=== PATIENT | female | born 1970 | race African-American/Black ===

== ENCOUNTER 2017-11-17 14:25 | Emergency (ER) | payer SELFPAY ==
[~2017-11-17] VITALS: Ht 149.9 cm; Wt 83.9 kg
--- NOTE | 2017-11-17 17:06 | Emergency Room Report ---
History of Present Illness General Chief Complaint: Lower Extremity Injury Source: Patient Present Illness HPI 47 YO Female presents to the ED C/O 5/ 10 in severity left upper gluteal pain that radiates laterally along the left hip and slightly toward the lower back. denies midline neck or back pain. pt. denies trauma or fall. reports symptoms are a constant dull/soreness/ache with intermittent sharp/ stronger exacerbations that she notices with certain movements, standing or walking a long time, and have begun to bother her at night when lying down. Denies numbness tingling or loss of sensation or gross motor movements of the extremities, incontinence of bowel or bladder. Denies saddle anesthesia or urinary retention. Denies abdominal pain, fevers, chills, or urinary symptoms. Allergies: Coded Allergies: No Known Allergies (Unverified , 11/17/17) Patient History Past Medical History: see triage record Past Surgical History: none Pertinent Family History: none Last Menstrual Period: 2 months Now: No Reviewed Nursing Documentation: PMH: Agreed; PSxH: Agreed Nursing Documentation-PMH Past Medical History: No Stated History Review of Systems All Other Systems: negative except mentioned in HPI Physical Exam Vital Signs Date Time Temp Pulse Resp B/P (MAP) Pulse Ox O2 Delivery O2 Flow Rate FiO2 11/17/17 14:49 98.6 82 18 117/63 98 Room Air 98.6 Sp02 EP Interpretation: reviewed, normal General Appearance: alert, GCS 15, non-toxic, mild distress Head: normocephalic, atraumatic ENT: hearing grossly normal, normal voice Neck: full range of motion Respiratory: lungs clear, normal breath sounds, speaking full sentences Cardiovascular #1: regular rate, rhythm Gastrointestinal: normal bowel sounds, non tender, soft, no guarding Genitourinary: normal inspection, no CVA tenderness Musculoskeletal: back normal, gait/station normal, normal range of motion, tender - TTP to the lateral and posterior left hip/ upper gluteal musculature and left sacral and lumbar paraspinal musculature, no midline or spinous process ttp, ambulatory, FROM of hip and back. Neurologic: alert, oriented x3, responsive, motor strength/tone normal, sensory intact, normal gait, speech normal, grossly normal Psychiatric: judgement/insight normal Skin: normal color, no rash, warm/dry, well hydrated, other - no bruises or erythema Medical Decision Making PA Attestation Dr. Wilkins is my supervising Physician whom patient management has been discussed with. Diagnostic Impression: Primary Impression: Lower back pain Qualified Codes: M54.5 - Low back pain Additional Impression: Gluteal pain ER Course 47 YO Female presents to the ED C/O in severity left upper gluteal pain that radiates laterally along the left hip and slightly toward the lower back. denies midline neck or back pain. pt. denies trauma or fall. reports symptoms are a constant dull/soreness/ache with intermittent sharp/ stronger exacerbations that she notices with certain movements, standing or walking a long time, and have begun to bother her at night when lying down. Denies numbness tingling or loss of sensation or gross motor movements of the extremities, incontinence of bowel or bladder. Denies saddle anesthesia or urinary retention. Denies abdominal pain, fevers, chills, or urinary symptoms. Ddx considered but are not limited to Fracture, dislocation, contusion, Pyelonephritis, arthritis, Sprain/Strain/Spasm Vital signs: are WNL, pt. is afebrile H&PE are most consistent with musculoskeletal etiology, no evidence of acute abdominal process, reproducible with moderate palpation of musculature, FROM of joints. no evidence of infection. No saddle anesthesia or obvious neurological deficits. ORDERS: x-ray Left hip 2 views: no acute fractures or dislocations. ED INTERVENTIONS: Lidoderm Patch TP. -I do not identify an emergent condition at this time. With current presentation , pt. is stable for close outpatient follow up and conservative treatment. D/ w pt. to return promptly to ED with worsening or new symptoms.- Pt. verbalizes understanding and agreement with proposed treatment plan.proposed treatment plan. DISCHARGE: At this time pt. is stable for d/c to home. Will provide printed patient care instructions, and any necessary prescriptions. Care plan and follow up instructions have been discussed with the patient prior to discharge. Other X-Ray Diagnostic Results Other X-Ray Diagnostic Results : X-Ray ordered: Left hip # of Views/Limited Vs Complete: 2 View Indication: Pain EP Interpretation: Yes AMAURY Xray: Interpretation reviewed, by supervising MD, and agrees with findings. Interpretation: no dislocation, no soft tissue swelling, no fractures Impression: No acute disease Electronically Signed by: Allison So PA-C Last Vital Signs Date Time Temp Pulse Resp B/P (MAP) Pulse Ox O2 Delivery O2 Flow Rate FiO2 11/17/17 14:49 98.6 82 18 117/63 98 Room Air 98.6 Disposition: HOME, SELF-CARE Condition: Stable Scripts Methocarbamol* (ROBAXIN*) 500 Mg Tablet 1000 MG PO TID, #42 TAB 0 Refills Loading dose of 1000mg three times a day for the first 3 days, then may drop down to 500mg if tolerated. Prov: Allison So 11/17/17 Lidocaine (Lidoderm) 1 Each Adh..patch 1 PATCH TOPIC DAILY, #30 PATCH 0 Refills Patch(es) may remain in place for up to 12 hours in any 24-hour period. Prov: Allison So 11/17/17 Ibuprofen* (MOTRIN*) 400 Mg Tablet 400 MG ORAL THREE TIMES A DAY, #30 TAB 0 Refills Prov: Allison So 11/17/17 Referrals: NOT CHOSEN IPA/MD,REFERRING (PCP) Patient Instructions: Back Pain, Adult, [id number], Sciatica, [id number] Additional Instructions: Take medications as directed. Follow up with a Primary Care Provider in 3-5 days, even if your symptoms have resolved. --Please review list of primary care clinics, if you do not already have a primary care provider Return sooner to ED if new symptoms occur, or current symptoms become worse. Do not drink alcohol, drive, or operate heavy machinery while taking [ ] as this may cause drowsiness. - Please note that this Emergency Department Report was dictated using [employer] color paste mixing technology software, occasionally this can lead to erroneous entry secondary to interpretation by the dictation equipment. Allison So Nov 17, 2017 17:06
[2017-11-17] MEDS ORDERED: LIDODERM700 M1 TOPIC (17:08)
[2017-11-17] MEDS ORDERED: IBUPROFEN400 MG ORAL (17:08)
[2017-11-17] MEDS ORDERED: ROBAXIN500 MG PO (17:08)
[2017-11-17 17:16] VITALS: BP 124/66
--- NOTE | 2017-11-18 09:14 | Diagnostic Imaging Report ---
Indication: Left hip pain Technique: 2 views of the left hip Comparison: none Findings: Body habitus limits evaluation. No definite acute fractures. No dislocations. Joint spaces are preserved Impression: No definite acute bony trauma.
== END 2017-11-17 17:16 | disposition home or self-care (01) ==
LOC: EMR 16:29
DX: M54.5 Low back pain (principal); M79.1 Myalgia
CPT/HCPCS: 73502; 99283